=== PATIENT | female | born 1975 | race African-American/Black ===

== ENCOUNTER 2017-10-01 20:27 | Emergency (ER) | payer OTHER ==
[~2017-10-01] VITALS: Ht 175.3 cm; Wt 78.0 kg
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
[2017-10-01] MEDS ORDERED: NKM (20:49)
[2017-10-02] MEDS ORDERED: NORCO 5-325 TA1 EAC1 ORAL (01:02)
[2017-10-02 04:09] VITALS: BP 115/77
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
== END 2017-10-02 01:15 | disposition home or self-care (01) ==
LOC: EMR 20:55
DX: S00.12XA Contusion of left eyelid and periocular area, initial encounter (principal); S00.83XA Contusion of other part of head, initial encounter; Y08.89XA Assault by other specified means, initial encounter; Y92.89 Other specified places as the place of occurrence of the external cause; Y99.0 Civilian activity done for income or pay
CPT/HCPCS: 70480; 99283